=== PATIENT | male | born 1985 | race Caucasian/White ===

== ENCOUNTER 2019-03-05 04:09 | Emergency (ER) | payer OTHER ==
[~2019-03-05] VITALS: Ht 190.5 cm; Wt 158.8 kg
--- NOTE | 2019-03-05 04:26 | NUR ---
TO BED 3 AMBULATORY C/O BILATERAL FLANK PAIN WITH VOMITING X2 HOURS. PT AAOX4 NO ACUTE DISTRESS NOTED, RESP EVEN AND UNLABORED. PT UNABLE TO PROVIDE URINE SAMPLE AT THIS TIME. PENDING ER MD FARIA.
--- NOTE | 2019-03-05 04:27 | NUR ---
[facility]ERS RECIEVED. WILL CARRY OUT ORDERS.
[2019-03-05] MEDS ORDERED: KETOROLAC TROMETHAMINE INJ 30 MG/ML VIAL IV ONE (04:30)
[2019-03-05] MEDS ORDERED: ONDANSETRON HCL/PF 4 MG/2 ML VIAL IVP ONE (04:30)
[2019-03-05] MEDS ORDERED: IV NS 0.9% 1,000 ML BAG IV ONE (04:30)
[2019-03-05] MEDS ORDERED: MORPHINE SULFATE INJ 2 MG/ML DISP.SYRIN IV ONE (04:30)
[2019-03-05] MEDS ORDERED: KETOROLAC TROMETHAMINE 15 MG/ML VIAL ONE (04:33)
[2019-03-05] MEDS ORDERED: MORPHINE SULFATE INJ 4 MG/ML DISP.SYRIN ONE (04:33)
[2019-03-05] MEDS ORDERED: ONDANSETRON HCL/PF 4 MG/2 ML VIAL ONE (04:33)
--- NOTE | 2019-03-05 04:40 | NUR ---
PT MEDICATED ORDERED.
--- NOTE | 2019-03-05 04:56 | NUR ---
PT VERBALIZE RELIEF OF FLANK PAIN 2/10. WILL CONTINUE TO MONITOR PT.
[2019-03-05 04:57] LABS: CALCIUM, SERUM 8.8 mg/dL (8.5-10.1); CREATININE 1.2 mg/dL (0.6-1.3); POTASSIUM 3.5 mmol/L (3.5-5.1)
[2019-03-05 04:58] LABS: BASOPHILS % (AUTO) 0.5 % (0.0-2.0); EOSINOPHILS % (AUTO) 1.7 % (0.0-6.0); HEMATOCRIT 43 % (39-51); HEMOGLOBIN 15.4 g/dL (13.5-17.5); LYMPHOCYTES # (AUTO) 3.2 /CMM (0.8-4.8); LYMPHOCYTES % (AUTO) 34.3 % (20.0-44.0); MEAN CORPUSCULAR HGB CONC 36 g/dl (31.0-36.0); MEAN CORPUSCULAR VOLUME 85 fL (80-96); MONOCYTES # (AUTO) 0.7 /CMM (0.1-1.30); MONOCYTES % (AUTO) 7.2 % (2.0-12.0); NEUTROPHILS # (AUTO) 5.3 /CMM (1.8-8.9); NEUTROPHILS % (AUTO) 56.3 % (43.0-81.0); PLATELET COUNT (AUTO) 234 /CMM (150-450); RED BLOOD CELL COUNT(AUTO) 5.03 MIL/uL (4.5-6.0); WHITE BLOOD COUNT (AUTO) 9.4 K/uL (4.3-11.0)
--- NOTE | 2019-03-05 04:58 | NUR ---
PT TRANSPORTED TO RADIOLOGY FOR CT ABD/PELVIS.
--- NOTE | 2019-03-05 05:09 | NUR ---
PT BACK FROM RADIOLOGY. PENDING CT ABD/PELVIS RESULT.
--- NOTE | 2019-03-05 06:25 | NUR ---
DENISHA MILLAN AT BEDSIDE TO RE-EVAL PT.
--- NOTE | 2019-03-05 07:09 | NUR ---
REPORT GIVEN TO AM SHIFT AMAURI ABDALLA.
--- NOTE | 2019-03-05 07:55 | NUR ---
urine collected and sent to lab.
[2019-03-05 08:14] VITALS: BP 137/85
--- NOTE | 2019-03-05 08:18 | NUR ---
FOR DISCHARGE- Patient discharged to home in stable condition. Written and verbal after care instructions given. Patient verbalizes understanding of instruction. Given [place] 10mg as per dr Triplett order prior to discharge
[2019-03-05] MEDS ORDERED: HYDROCODONE/APAP 10/325MG 1 EA TABLET ONE (08:20)
[2019-03-05 08:30] LABS: APPEARANCE,URINE Clear (CLEAR); BILIRUBIN,URINE SMALL (NEGATIVE); BLOOD, URINE Moderate Ery/uL (NEGATIVE); COLOR,URINE Yellow (YELLOW); KETONES,URINE 15 (NEGATIVE); LEUKOCYTE ESTERASE ,URINE Negative (NEGATIVE); NITRITE, URINE Negative (NEGATIVE); PROTEIN,URINE Negative (NEGATIVE); UGLUCOSE >=1000 mg/dL (NEGATIVE); UROBILINOGEN,URINE 0.2 EU/dL (0.2)
[2019-03-05] MEDS ORDERED: HYDROCODONE/APAP 10/325MG 1 EA TABLET PO ONE (08:30)
[2019-03-05] MEDS ORDERED: ONDANSETRON HCL 4 MG/5 ML SOLUTION PO ONE (08:30)
[2019-03-05 08:34] LABS: BACTERIA,URINE Rare /HPF (None Seen); SQUAMOUS EPITHELIAL CELL,UR Rare /HPF (None Seen)
[2019-03-05] MEDS ORDERED: ONDANSETRON 4 MG TAB.RAPDIS ONE (08:35)
== END 2019-03-05 08:16 | disposition home or self-care (01) ==
LOC: ER 04:11
DX: N23 Unspecified renal colic (principal); E11.9 Type 2 diabetes mellitus without complications; F17.200 Nicotine dependence, unspecified, uncomplicated; R11.2 Nausea with vomiting, unspecified
CPT/HCPCS: 36415; 74176; 80048; 81001; 85025; 87086; 96361; 96374; 96375; 99284; J1885; J2270; J2405; J7030; Q0162; 81000-TC